=== PATIENT | male | born 1980 | race African-American/Black ===

== ENCOUNTER 2021-10-14 14:32 | Inpatient (IN) | payer OTHER ==
[~2021-10-14] VITALS: Ht 182.9 cm; Wt 95.8 kg
--- NOTE | ~2021-10-14 | HC ---
[facility] [place] [address] CONSULTATION Name: SACHI ABDALLA Room #: 209-P ADM IN M.R.#: [id number] Admission: 10/14/21 Attend Phys: Stan Wells MD Discharge: Date of : 82 Report #: [id number] THIS REPORT FOR: cc: NO FAMILY PHYSICIAN or PCP NO FAMILY PHYSICIAN or PCP Doimedes Quinteros MD ~ DATE OF SERVICE: 10/15/2021 HISTORY OF PRESENT ILLNESS: This is a 41-year-old male patient, who was evaluated by me for somewhat unusual symptoms. The patient has some speech difficulty. This is a few days' duration. It started spontaneously. He does not have any paralysis associated with this. He does not remember having any symptoms in the past like this. He has not become any worse or better. REVIEW OF SYSTEMS: Indicates he is rather healthy. He said he does not take any medication. He does not go to any physician on a regular basis. He did have some blood workup done a few weeks ago. He does not know the reason for that. Typical vascular risk factors are not there in him except the family history, which I will describe below. He does not use any drugs. I specifically asked him if he has any history of migraine or history of seizures and he denies that and he says he does not even get headaches on a regular basis. He works at [employer] He says that the people have not noticed any symptoms of memory problem and they do not think he is having any cognitive issues. He does not think that way either. He denies any other eye, ENT, cardiac, respiratory, GI, , musculoskeletal, constitutional, dermatological, hematological, psychiatric, throat, allergic symptom associated with present symptomatology. Past medical history is negative for stroke. Family history is positive for stroke in the brother. He was in [facility]. He had some workup done and he is a 43-year-old. He does not know if they determine any cause why he is having a stroke at such a young age. Family history is also positive for stroke in the mother, but he does not know any further history. SOCIAL HISTORY: He says he drinks alcohol very rarely. He does not smoke. He does not use any drugs, street or prescription. ALLERGIES: He has no known allergies. PHYSICAL EXAMINATION: He is alert, very well-built individual with normal hearing and vision. To me, he is able to communicate reasonably well. He has a reasonably fluent speech and he does not have any paraphasic error, which I can tell. Speech therapy has evaluated him and they had found some lingual deviation. PT evaluation is pending. His cranial nerve examination II-XII is unremarkable. There does not appear to be any visual field defect or any gross palsy of the facial nerve. Strength, sensation, [place] [address] CONSULTATION Name: SACHI ABDALLA Room #: 209-P [facility] IN M.R.#: [id number] Admission: 10/14/21 Attend Phys: Stan Wells MD Discharge: Date of : 82 Report #: [id number] symmetrical. His position sense is intact. He has no meningeal sign. He has no cerebellar sign. I could not look at the patient's fundus. His pulses are palpable in the lower extremities. He has no edema. He has no carotid bruit. There is no thyroid mass. His cardiac examination is unremarkable. His blood pressure is 101/65, respiration is 18, pulse is 64, temperature is 98 and his blood pressure in fact is running in somewhat low range throughout his hospitalization here. LABORATORY DATA: So far indicate white count of 7.1. He does have slightly elevated AST and ALT for some reason. His triglycerides are elevated, and his LDL is elevated. IMPRESSION: Multiple acute cerebrovascular accident on both sides of the brain, and multiple diagnoses were considered in this patient. The patient does not have many additional risk factors for the stroke. Therefore, he will need extensive workup to determine what the etiology is and see if something is treatable. He does have dyslipidemia and that needs to be aggressively treated. However, dyslipidemia is not bad enough to cause him strokes at such an early age and do the same to his brother. I considered the diagnosis of CADASIL, but the patient does not have any history suggestive of migraine or seizure or dementia, but still he is only 41-year-old. He needs an extensive cardiac evaluation to see if there is a source of emboli from the heart including patent foramen ovale. He will need prolonged monitoring after he is dismissed. He may also need a JONNA. I am not sure why his liver function is abnormal. I am going to check a hepatitis profile and I will also send TTP to make sure it is liver and nothing else. This patient also needs a spinal tap, but looks like he got Plavix the first dose. The Radiologist will not do a spinal tap if the Plavix was given. They want to wait several days. Therefore, we will not be able to do the spinal tap and we may have to wait until the effect of Plavix is over we may just give him Plavix and aspirin for 21 days and try to do the spinal tap as an outpatient after that. In any event, the spinal tap is needed to be done as an outpatient. First, I think we should try to look for some unconventional factors in this patient for cerebrovascular accident, especially the cardiac factor and hypercoagulable ____. I am going to consult Cardiology to work up the cardiac factors in this patient. I had a long discussion with the patient. I discussed with him that we will be doing all those things and many of those things may have to be done as an outpatient. He can get it initial workup through us done, but he may have to go to even higher level of care depending upon the outcome of these testing and [facility] [address] [place] [address] CONSULTATION Name: SACHI ABDALLA Room #: 209-P ADM IN ..#: [id number] Admission: 10/14/21 Attend Phys: Stan Wells MD Discharge: Date of : 82 Report #: [id number] then can get in there. The patient will be discussed with the hospitalist also, but I discussed all of it in detail with the patient. By: 1048 11 Diomedes Quinteros MD /nt
[2021-10-14 14:40] VITALS: BP 119/58
[2021-10-14 17:34] LABS: HEMATOCRIT 43.1 % (42.0-52.0); HEMOGLOBIN 14.4 gm/dL (14.0-18.0); MCHC 33.5 g/dL (28.0-37.0); MCV 83.5 fL (80.0-100.0); PLATELET COUNT 252 thou/uL (150-400); RBC 5.16 mil/uL (4.50-6.00); WBC 7.1 thou/uL (4.0-11.0)
[2021-10-14 17:40] LABS: CALCIUM 9.4 mg/dL (8.5-10.1); CREATININE 1.3 mg/dL (0.7-1.3); POTASSIUM 4.3 mmol/L (3.5-5.1)
[2021-10-14 17:50] LABS: ALBUMIN 3.9 g/dL (3.4-5.0); TOTAL BILIRUBIN 0.5 mg/dL (0.2-1.0); TOTAL PROTEIN 7.9 g/dL (6.4-8.2)
[2021-10-14 18:05] LABS: APTT 25.2 Seconds (24.5-32.8); INR 1.1
[2021-10-14 18:30] LABS: ABSOLUTE NEUTROPHILS 1.8 thou/uL (1.4-8.2)
[2021-10-14 18:31] LABS: ATYPICAL LYMPHS 3 %
[2021-10-14 21:09] VITALS: BP 106/62
[2021-10-14 21:34] VITALS: BP 100/60
[2021-10-14 22:22] VITALS: BP 110/63
[2021-10-15 03:47] VITALS: BP 89/50
[2021-10-15 05:53] LABS: CHOLESTEROL 163 mg/dL (<200); HDL CHOLESTEROL 29 mg/dL (>40); LDL CHOLESTEROL 104 mg/dL (<100); TC:HDL 5.6 Ratio (Not establshd); TRIGLYCERIDE 153 mg/dL (<150); VLDL 31 mg/dL (<40)
[2021-10-15 06:13] LABS: SERUM ASSESSMENT Slight Lipemia
--- NOTE | 2021-10-15 06:25 | NUR ---
PATIENT ADMITTED FROM THE ER AAOX4. PATIENT ABLE TO AMBULATE UNDER OWN STRENGTH. FOLLOWS ALL COMMANDS AND PROMPTS. DENIES PAIN OR NEEDS AT THIS TIME. SINUS KOMAL ON THE MONITOR. NO DEFICIT OR WEAKNESS NOTED. SOME MILD TONGUE DEVIATION TO THE RIGHT SIDE. VSS. WILL CONTINUE TO MONITOR FOR CHANGES IN STATUS.
--- NOTE | 2021-10-15 08:10 | EKG ---
[address] [place] [address] ELECTROCARDIOGRAM REPORT Name: SACHI ABDALLA Room #: 209-P ADM IN M.R.#: [id number] Admission: 10/14/21 Attend Phys: Elizabeth Salinas Discharge: Date of : 82 Report #: [id number] [facility] ED Test Date: 2021-10-14 Test Time: 17:32:42 Pat Name: SACHI ABDALLA Department: Room: 209 Gender: M [employer] Sanding Machine Operator: SEBASTIEN : 1980 Requested By: Tayo Vega Order Number: [id number] MD: Maikel Galvez Measurements Intervals [place] Rate: 63 P: 50 [place]: 145 QRS: 15 QRSD: 94 T: 20 QT: 416 QTc: 426 Interpretive Statements Sinus rhythm No significant abnormality No previous ECG available for comparison Electronically Signed On 10-15-2021 8:10:22 POWER SYSTEM OPERATOR by Maikel Galvez [email or web address] <ELECTRONICALLY SIGNED> By: Maikel Galvez MD, [facility] 10/15/21 0810 1732 1732 Maikel Galvez MD, FACC /EPI
[2021-10-15 08:15] LABS: URINE BILIRUBIN NEGATIVE (Negative); URINE BLOOD NEGATIVE (Negative); URINE CLARITY CLEAR; URINE COLOR YELLOW; URINE GLUCOSE-RANDOM* NEGATIVE (Negative); URINE KETONES NEGATIVE (Negative); URINE LEUKOCYTES NEGATIVE (Negative); URINE NITRITE NEGATIVE (Negative); URINE PROTEIN (DIPSTICK) NEGATIVE (Negative); URINE SPECIFIC GRAVITY >= 1.030 (1.005-1.035)
[2021-10-15 08:20] LABS: AMP/METHAMP Negative (Negative); BARBITURATES Negative (Negative); BENZODIAZEPINES Negative (Negative); COCAINE Negative (Negative); METHADONE Negative (Negative); OPIATES Negative (Negative); PCP Negative (Negative)
--- NOTE | 2021-10-15 09:34 | NUR ---
PATIENT BEING TAKEN DOWN FOR MRI.
[2021-10-15 10:02] VITALS: BP 101/65
[2021-10-15 12:10] VITALS: BP 100/59
--- NOTE | 2021-10-15 16:11 | NUR ---
PATIENT ADMITTED FOR PATIENT ADMITTED FOR DYSARTHRIA. CHART REVIEWED AND DISCUSSED WITH CARE TEAM. CM MET WITH PT THIS DAY. PT A&0X4. CM ROLE INTRODUCED. PT REPORTS LIVING AT HOME WITH HIS FIANCE AND CHILDREN. HE REPORTS INDEP WITH ADLS AND MOBILITY. STILL WORKS AND DRIVES. HE REPORTS NO DEFICITS EXCEPT TONGUE MOVING TO THE RIGHT. SPEECH CLEAR AND APPRRPRIATE. PT REPORTS NO CONCERNS ONCE MEDICALLY STABLE TO DC. PT/OT/ST RECOMMEND HOME WITH NO NEEDS. NO CM INTERVENTIONS INDICATED AT THIS TIME. CM WILL FOLLOW FOR DC NEEDS.
[2021-10-15 16:34] VITALS: BP 91/56
[2021-10-15 19:46] VITALS: BP 106/59
--- NOTE | 2021-10-16 04:46 | NUR ---
PATIENT AAOX4 RESTING IN HIS ROOM. STATES THAT HE HAS HAD A GOOD DAY AND THAT HE UNDERSTANDS THAT HE IS TO BE NPO AFTER MIDNIGHT FOR SCHEDULED JONNA IN THE AM. HE IS CALM COOPERATIVE AND COMPLIANT. DENIES PAIN OR NEEDS. AMBULATED UNDER HIS OWN ACCORD. NO S/S OF WEAKNESS NOTED. WILL CONTINUE TO MONITOR FOR CHANGES IN PATIENT STATUS.
[2021-10-16 05:12] LABS: GLYCOHEMOGLOBIN (HGB A1C) 6.2 % (4.8-5.6)
[2021-10-16 05:19] VITALS: BP 101/65
[2021-10-16 07:09] LABS: HAV IgM AB (ANTI-HAV IgM) Negative (Negative); HEPATITIS B SURFACE AG Negative (Negative); HIV ANTIBODY Non Reactive (Non Reactive)
--- NOTE | 2021-10-16 09:09 | NUR ---
PT RETURNED TO RM 209 AT 0855 PER RN ON PT'S BED. PT AWAKE, ALERT, VSS, NSR ON MONITOR. SAT 99% ON RA. REPORT TO ALAYNA CHAWLA
[2021-10-16 09:13] VITALS: BP 106/59
--- NOTE | 2021-10-16 09:45 | TEE ---
[facility] [place] [address] TRANSESOPHAGEAL ECHOCARDIOGRAM Name: SACHI ABDALLA Room #: 209-P ADM IN M.R.#: [id number] Admission: 10/14/21 Attend Phys: Stan Wells MD Discharge: Date of : 82 Report #: [id number] THIS REPORT FOR: cc: NO FAMILY PHYSICIAN or PCP NO FAMILY PHYSICIAN or PCP Liam Katz MD [facility] ~ APPROVED REPORT Study performed: 10/16/2021 08:05:30 EXAM: Comprehensive 2D, Doppler, and color-flow Echocardiogram Patient Location: In-Patient Room #: 209 Status: routine BSA: 2.18 HR: 88 bpm Rhythm: NSR Other Information Study Quality: Good Indications CVA/TIA Echo Enhancing Agent Indication: Rule out Shunt Agent(s) / Amount(s) Used: Agitated Saline 7 cc Procedure After obtaining informed consent, patient underwent transesophageal echo in the [employer]. Type of Sedation : Conscious Sedation Sedation was administered by Nurse. Sedation start time: 812 Case end Time: 816 Sedation was achieved intravenously with: Versed (5.5mg) Fentanyl (75mcg) Transesophageal probe was inserted and advanced into esophagus without difficulty by Liam Katz MD. Echo enhancement indication: R/O Septal defect. Echo enhancement agent administered: Agitated Saline The JONNA was performed without complications. Throughout the procedure, the blood pressure, pulse oximetry, cardiac [facility] [address] [place] [address] TRANSESOPHAGEAL ECHOCARDIOGRAM Name: SACHI ABDALLA Room #: 209-P ADM IN M.R.#: [id number] Admission: 10/14/21 Attend Phys: Stan Wells MD Discharge: Date of : 82 Report #: [id number] rhythm, and rate were monitored. The patient tolerated the procedure without adverse effects. Recovery from conscious sedation was uneventful and vital signs were stable. Left Ventricle The left ventricle is normal size. There is normal LV segmental wall motion. There is normal left ventricular wall thickness. Left ventricular systolic function is normal. The left ventricular ejection fraction is within the normal range. LVEF is 55-60%. Right Ventricle The right ventricle is normal size. The right ventricular systolic function is normal. Atria The left atrium size is normal. Injection of contrast documented no interatrial shunt. The right atrium size is normal. Aortic Valve The aortic valve is normal in structure. No aortic regurgitation is present. There is no aortic valvular stenosis. Mitral Valve The mitral valve is normal in structure. There is no mitral valve regurgitation noted. No evidence of mitral valve stenosis. Tricuspid Valve The tricuspid valve is normal in structure. There is no tricuspid valve regurgitation noted. Pulmonic Valve The pulmonary valve is normal in structure. There is no pulmonic valvular regurgitation. Great Vessels The aortic root is normal in size. Pericardium There is no pericardial effusion. <Conclusion> Consent was obtained Timeout performed Esophageal probe was advanced without difficulty after proper sedation [facility] [address] [place] [address] TRANSESOPHAGEAL ECHOCARDIOGRAM Name: SACHI ABDALLA Room #: 209-P [facility] IN .R.#: [id number] Admission: 10/14/21 Attend Phys: Stan Wells MD Discharge: Date of : 82 Report #: [id number] Left atrial appendage, moderate size no evidence of clots or mass detected Normal atrial size Normal left ventricle size/wall thickness Ejection fraction 60% Normal right ventricle size/function Normal aortic/mitral valve structure and function No evidence of tricuspid valve insufficiency No pericardial effusion Normal aortic root size No evidence of ASD/VSD by color flow/bubble study Patient tolerated procedure well. <ELECTRONICALLY SIGNED> By: Liam Katz MD, FACC 10/16/2144 3 3 Liam Katz MD, FACC /INF
[2021-10-16 11:08] LABS: ANA INTERPRETATION Positive (Negative)
[2021-10-16 11:12] VITALS: BP 104/60
[2021-10-16] MEDS ORDERED: BAYER CHEWABLE81 MG PO (13:30)
[2021-10-16] MEDS ORDERED: PLAVIX 75 MG TA75 M1 PO (13:30)
[2021-10-16] MEDS ORDERED: LIPITOR40 MG PO (13:48)
[2021-10-16 15:26] VITALS: BP 113/70
[2021-10-16 15:46] VITALS: BP 113/70
--- NOTE | 2021-10-16 15:49 | NUR ---
CM FOLLOWING FOR DC PLANNING. SPEECH THERAPY INDICATED NO OUTPT THERAPY INDICATED. RECOMMENDATIONS ARE FOLLOW UP WITH PCP THERE IS NO FORMAL DYSPHAGIA TREAMENT WARRENTED AT THIS TIME. NO FURTHER CM INTERVENTIONS INDICATED.
[2021-10-16 19:51] VITALS: BP 109/69
[2021-10-17 03:51] LABS: HEMATOCRIT 41.3 % (42.0-52.0); HEMOGLOBIN 13.9 gm/dL (14.0-18.0); MCH 28.2 pg (26.0-34.0); MCHC 33.7 g/dL (28.0-37.0); MCV 83.7 fL (80.0-100.0); PLATELET COUNT 214 thou/uL (150-400); RBC 4.93 mil/uL (4.50-6.00); RDW 14.5 % (10.5-14.5); WBC 5.7 thou/uL (4.0-11.0)
[2021-10-17 03:57] LABS: APTT 35.3 Seconds (24.5-32.8); INR 1.08; PROTIME 11.7 Seconds (10.5-12.1)
[2021-10-17 04:51] LABS: ALBUMIN 3.3 g/dL (3.4-5.0); CALCIUM 8.3 mg/dL (8.5-10.1); CREATININE 1.3 mg/dL (0.7-1.3); POTASSIUM 4.1 mmol/L (3.5-5.1); TOTAL BILIRUBIN 0.4 mg/dL (0.2-1.0); TOTAL PROTEIN 7.1 g/dL (6.4-8.2)
[2021-10-17 05:08] VITALS: BP 107/68
--- NOTE | 2021-10-17 05:41 | NUR ---
PATIENT HAD ANOTHER GOOD EVENING. HE IS AAOX4 AND FOLLOWS ALL COMMANDS AND PROMPTS. COMPLIANT WITH MEDICATION AND ASKS QUESTIONS REGARDING HIS BLOOD THINEER. DENIES NEAL PAIN OR WEAKNESS TONIGHT. DENIES PAIN OR NEEDS. ALL SAFETY PRECAUTION IN PLACE. WILL CONTINUE TO MONITOR FOR ANY ACUTE CHANGES.
[2021-10-17 06:48] LABS: ABSOLUTE NEUTROPHILS 1.7 thou/uL (1.4-8.2); ATYPICAL LYMPHS 2 %; PLATELET ESTIMATE NORMAL
[2021-10-17 08:00] VITALS: BP 103/65
[2021-10-17 09:21] LABS: HEPATITIS C VIRUS AB <0.1
[2021-10-17 11:00] VITALS: BP 112/70
[2021-10-17 15:24] VITALS: BP 106/70
[2021-10-17] MEDS ORDERED: ENOXAPARIN100 MG/1 M SUBQ (16:25)
[2021-10-17] MEDS ORDERED: WARFARIN SODIU2.5 MG PO (16:34)
--- NOTE | 2021-10-17 16:39 | NUR ---
CM MET WITH PT THIS DAY. CM PROVIDED EDUCATION OF LOVENOX COST. PT INS NOT ON FILE WITH PT PREFERRED [facility] IN [facility]. PT COST WITHOUT INS IS $1100. PT TO BRING INS CARD WITH HIM WHEN HE PICKS UP MEDS AND HIS COST WILL BE SIGNIFICANTLY LESS. PT VOICED UNDERSTANDING. CM ALSO REFERRED TO TO [facility]. WELL CALL CARDIOLOGY OFFICE WITH ANY QUESTIONS OR CONCERNS SURROUNDING LOVENOX. NO FURTHER CM INTERVENTIONS INDICATED AT THIS TIME.
[2021-10-17 16:48] VITALS: BP 113/70
--- NOTE | 2021-10-17 17:06 | NUR ---
ASSUMED PT CARE THIS MORNING. PT A&OX4 AND COMMUNICATING NEEDS TO STAFF APPROPRIATELY. PT HAD A HEADACHE THAT WAS TREATED WITH TYLENOL. DENIES ANY CHEST PAIN, SOA, OR OTHER DISCOMFORT. PT VOIDING AND WALKING INDEPENDENLTY. DC INSTRUCTIONS REVIEWED WITH THE PT. IV AND TELE MONITORING DISCONTINUED. PT WAS EDUCATED ABOUT STROKE PREVENTION, HEART HEALTHY DIET, AND ANTICOAGULANT SAFETY. QUESTIONS WERE INVITED AND ADDRESSED. PT WAS SENT HOME WITH ALL OF THEIR BELONGINGS.
[2021-10-17 21:16] LABS: SYPHILIS AB Non Reactive (Non Reactive)
== END 2021-10-17 17:17 | disposition home or self-care (01) | DRG 71 ==
LOC: ER 14:32 → 2N 19:16 → EROBS 19:16 → 2N 21:38
PROVIDERS: Emergency Medicine; Internal Medicine; Nurse Practitioner; Nurse Practitioner Family; Psychiatry & Neurology Neuromuscular Medicine; ADMIT Internal Medicine; ATTEND Internal Medicine
PROC: B24BZZ4 Ultrasonography of Heart with Aorta, Transesophageal (ICD-10-PCS; principal; 2021-10-16)
DX: I67.850 Cerebral autosomal dominant arteriopathy with subcortical infarcts and leukoencephalopathy (principal); D68.61 Antiphospholipid syndrome; R47.1 Dysarthria and anarthria; R74.01 Elevation of levels of liver transaminase levels; E78.5 Hyperlipidemia, unspecified; Z79.82 Long term (current) use of aspirin; Z79.899 Other long term (current) drug therapy; Z82.3 Family history of stroke; Z20.822 Contact with and (suspected) exposure to COVID-19
CPT/HCPCS: 10081

== ENCOUNTER → 2021-10-28 | Outpatient (CLI) | payer OTHER ==
[~2021-10-28] MED LIST: BAYER CHEWABLE81 MG PO; ENOXAPARIN100 MG/1 M SUBQ; LIPITOR40 MG PO; PLAVIX 75 MG TA75 M1 PO; WARFARIN SODIU2.5 MG PO
[2021-10-28 14:07] LABS: INR 1.05; PROTIME 11.4 Seconds (10.5-12.1)
== END ==
LOC: LAB 13:30
PROVIDERS: ATTEND Internal Medicine
DX: Z79.01 Long term (current) use of anticoagulants (principal)